=== PATIENT | female | born 1990 | race Caucasian/White ===

== ENCOUNTER 2016-09-12 16:27 | Emergency (ER) | payer MEDICAID, OTHER ==
[~2016-09-12] VITALS: Ht 152.4 cm; Wt 55.0 kg
[2016-09-12 16:28] VITALS: BP 105/57; PULSE 90; RESP 20; TEMP 98.6; O2SAT 98
[2016-09-12] MEDS ORDERED: CEPHALEXIN MONOHYDRATE 500 MG CAP PO ONE (19:00)
[2016-09-12] MEDS ORDERED: SULFAMETHOXAZOLE-TRIMETHOPRIM DS 800-160 MG TAB PO ONE (19:00)
[2016-09-12] MEDS ORDERED: LIDOCAINE 1%/EPINEPHrine 1:100,000 SOLN 20 ML VIAL INFIL ONE (19:00)
--- NOTE | 2016-09-12 19:05 | PD ---
HPI Chief Complaint: Lump, Cyst, Hernia Time Seen by Provider: 19:03 Travel History International Travel<30 days: No Contact w/Intl Traveler<30days: No Traveled to known affect area: No History of Present Illness HPI 26-year-old female presents to the emergency department for evaluation abscess to her upper groin/vaginal area that started approximately one week ago, but has been worsening. Patient denies any fevers or chills. No shortness of breath. No chest. No abdominal pain. No nausea, vomiting, diarrhea. She reports no chronic medical problems and takes no prescribed medications. Patient denies any chance of . She has no other complaints at this time. [facility] Past Medical History Medical History: Denies Significant Hx Tetanus Vaccination: < 5 Years Influenza Vaccination: No ?: Not LMP: 09/06/16 : 2 Para: 2 Miscarriage: 0 : 0 Past Surgical History Ear Surgery: Yes Social History Alcohol Use: No (denies ) Tobacco Use: Yes (3 cigarrettes per day) Substance Use: No (pt denies ) Allergies-Medications (Allergen,Severity, Reaction): Coded Allergies: Percocet (Verified Adverse Reaction, Unknown, vomiting, 09/12/16) Reported Meds & Prescriptions Reported Meds & Active Scripts Active No Active Prescriptions or Reported Medications Review of Systems Except as stated in HPI: all other systems reviewed are Neg Physical Exam Narrative GENERAL: Well-nourished, well-developed female patient, ambulatory. Afebrile. SKIN: Focused skin assessment warm/dry. Patient is positive for centimeter a 2 cm abscess to the upper vaginal area, without drainage. Patient has fluctuance noted. HEAD: Atraumatic. Normocephalic. No temporal or scalp tenderness. EYES: No scleral icterus. No injection or drainage. NECK: Supple, trachea midline. No JVD or lymphadenopathy. CARDIOVASCULAR: Regular rate and rhythm without murmurs, gallops, or rubs. RESPIRATORY: Breath sounds equal bilaterally. No accessory muscle use. GASTROINTESTINAL: Abdomen soft, non-tender, nondistended. MUSCULOSKELETAL: No cyanosis, or edema. BACK: Nontender without obvious deformity. No CVA tenderness. Data Data Last Documented VS Vital Signs Date Time Temp Pulse Resp B/P Pulse Ox O2 Delivery O2 Flow Rate FiO2 09/12/16 18:54 16 09/12/16 16:28 98.6 90 105/57 98 Room Air Orders Wound Culture And Gram Stain (09/12/16 19:00) Lidocai-Epi 1%-1:100,000 Inj (Xylocaine- (09/12/16 19:00) Sulfamet-Trimeth Ds 800-160 Mg (Bactrim (09/12/16 19:00) Cephalexin (Keflex) (09/12/16 19:00) MDM Medical Decision Making Medical Screen Exam Complete: Yes Emergency Medical Condition: Yes Medical Record Reviewed: Yes Differential Diagnosis Abscess versus cellulitis versus cyst Narrative Course 26-year-old female presents to the emergency department for evaluation of abscess to her upper vaginal area that started approximately one week ago. Patient gives verbal consent for incision and drainage. Patient will be started on Bactrim and Keflex. Patient is given proper wound care instructions. She'll be discharged with a prescription for Bactrim, Keflex, ibuprofen for pain. Patient is to return for any acute worsening of symptoms. Procedures Procedure Narrative INCISION AND DRAINAGE OF ABSCESS: The area was prepped and was sterilely draped. A subcutaneous wheal of 1% Xylocaine with epinephrine with a total number 7 mL was used to anesthetize the area. The area was properly anesthetized. A number 11 scalpel was used to make a 1-cm incision across the area of the abscess. Cultures were obtained. The abscess was drained an irrigated with normal saline. Quarter inch iodoform packing was placed in the wound. Sterile dressing applied. Patient advised to have packing removed in two days. Diagnosis Primary Impression: Abscess Referrals: Primary Care Physician call for appointment Patient Instructions: Abscess (ED), Abscess Incision and Drainage (ED), General Instructions Additional Instructions: Clean twice daily with soap and water and apply [id number] antibiotic ointment. Keep Clean and dry. Packing removal in 2 days. Take antibiotics as directed until gone. Take ibuprofen as directed as needed with food for pain. Follow-up with your primary care physician. Return to the emergency department for any acute worsening of symptoms. Med/Other Pt SpecificInfo: Prescription(s) given Scripts Ibuprofen 600 Mg [id number] Mg PO TID PRN (PAIN SCALE 1 TO 10) #21 TAB Ref 0 Prov:Helen Vo 09/12/16 Cephalexin (Keflex)500 Mg [id number] Mg PO Q6H 10 Days Ref 0 Prov:Helen Vo 09/12/16 Sulfamethoxazole-Trimethoprim (Bactrim DS)800-160 Mg Tab1 Tab PO BID #20 TAB Ref 0 Prov:Helen Vo 09/12/16 Disposition: 01 DISCHARGE HOME Condition: Stable Helen Vo Sep 12, 2016 19:05
[2016-09-12] MEDS ORDERED: IBUP-232 PO (19:50)
[2016-09-12] MEDS ORDERED: BACT800T5 PO (19:50)
[2016-09-12] MEDS ORDERED: CEPH-460 PO (19:50)
[2016-09-12 20:00] VITALS: BP 135/77
[2016-09-12] MEDS ORDERED: IBUPROFEN 600 MG TAB PO ONE (20:00)
== END 2016-09-12 20:07 | disposition home or self-care (01) ==
LOC: EDBD → NEPC 16:27
DX: N76.0 Acute vaginitis (principal); F17.210 Nicotine dependence, cigarettes, uncomplicated
CPT/HCPCS: 56405; 86403; 87070; 87186; 87205